=== PATIENT | male | born 1995 | race Caucasian/White ===

== ENCOUNTER 2022-11-06 11:58 | Emergency (ER) | payer MEDICAID ==
[~2022-11-06] VITALS: Ht 165.1 cm; Wt 79.1 kg
[~2022-11-06 11:58] MED LIST: OMEP20CA15 PO; ONDA4TAB6 PO; SUCR1TAB34 PO
[2022-11-06 12:02] VITALS: BP 127/88; PULSE 90; RESP 16; TEMP 98.6; O2SAT 100
== END 2022-11-06 13:37 | disposition left against medical advice (07) ==
LOC: ER 11:59
DX: R07.89 Other chest pain (principal); Z53.21 Procedure and treatment not carried out due to patient leaving prior to being seen by health care provider
CPT/HCPCS: 93005; 99281